=== PATIENT | female | born 1985 | race African-American/Black ===

== ENCOUNTER 2019-05-14 21:01 | Emergency (ER) | payer MEDICAID ==
[~2019-05-14] VITALS: Ht 175.3 cm; Wt 68.0 kg
[2019-05-14 21:04] VITALS: BP 121/83
== END 2019-05-15 01:18 | disposition left against medical advice (07) ==
LOC: ER 21:01
DX: Z53.21 Procedure and treatment not carried out due to patient leaving prior to being seen by health care provider (principal)